=== PATIENT | female | born 1935 | race Caucasian/White ===

== ENCOUNTER 2017-04-13 12:18 | Emergency (ER) | payer OTHER ==
[2017-04-13 12:24] VITALS: BP 101/58; PULSE 82; TEMP 98.2; BMI 20.7
--- NOTE | 2017-04-13 12:24 | PDOC ---
History of Present Illness - General Chief Complaint: Respiratory Stated Complaint: SORE THROAT, COUGH Time Seen by Provider: 04/13/17 12:23 Past History - Past Medical History Allergies/Adverse Reactions: Allergies Allergy/AdvReac Type Severity Reaction Status Date / Time No Known Drug Allergies Allergy Verified 04/13/17 12:19 Home Medications: Ambulatory Orders Sulfamethoxazole/Trimethoprim [Bactrim Ds -] 1 tab PO BID #14 tablet 04/13/17 - Surgical History Orthopedic Surgery: Yes (ELEANOR KNEE REPLACEMENTS) - Suicide/Smoking/Psychosocial Hx Smoking History: Never smoked Hx Alcohol Use: No Drug/Substance Use Hx: No Hx Substance Use Treatment: No ED Treatment Course - LABORATORY CBC & Chemistry Diagram: 04/13/17 12:45 04/13/17 12:45 Medical Decision Making - Medical Decision Making 04/13/17 13:21 Chest x-ray: Clear Urinalysis reveals greater than 100 white cells, red cells, nitrite suggestive of UTI Labs reveal mild elevation of LFTs, of which the patient is aware and being followed by Dr. Piña of GI. No definite diagnosis at present. Otherwise no significant abnormalities. Troponin negative EKG normal sinus rhythm, 73/m, possible LVH. Possible old septal infarct, no acute ST-T wave changes. No old EKG for comparison. Unlikely that this is an acute coronary event. 04/13/17 13:26 Reviewed the results of stress test 05/13. Normal stress test, ejection fraction 80%. *DC/Admit/Observation/Transfer Diagnosis at time of Disposition: Urinary tract infection Qualifiers: Urinary tract infection type: acute cystitis Hematuria presence: with hematuria Qualified Code(s): N30.01 - Acute cystitis with hematuria; N30.01 - Acute cystitis with hematuria - Discharge Dispostion Disposition: HOME Condition at time of disposition: Stable Admit: No - Prescriptions Prescriptions: Sulfamethoxazole/Trimethoprim [Bactrim Ds -] 1 tab PO BID #14 tablet - Patient Instructions Printed Discharge Instructions: DI for Urinary Tract Infection (UTI) Additional Instructions: Take antibiotics as directed. Drink lots of fluids. See primary physician to recheck urine for cure after finishing antibiotics. Return to ER if there is high fever or abdominal/back pain.
[2017-04-13] MEDS ORDERED: SODIUM CHLORIDE 500 ML IV STA (12:32)
[2017-04-13 12:52] LABS: BASOPHIL 0.4 % (0-2.0); EOSINOPHIL 0.3 % (0-4.5); MCH 33.8 pg (25.7-33.7); MCHC 33.3 g/dl (32.0-36.0); MEAN CELL VOLUME 101.6 fl (80-96); MEAN PLT VOLUME 8.4 fl (7.5-11.1); NEUTROPHILS 69.2 % (42.8-82.8); PLATELET COUNT 160 K/MM3 (134-434); WHITE BLOOD COUNT 9.7 K/mm3 (4.0-10.8)
[2017-04-13 13:07] LABS: ALBUMIN 3.4 g/dl (3.5-5.0); ALK PHOS 140 U/L (32-92); ANION GAP 7 (8-16); BILIRUBIN,TOTAL 1.3 mg/dl (0.2-1.0); CALCIUM 8.6 mg/dl (8.4-10.2); CO2 25 mmol/L (22-28); CPK 113 IU/L (26-192); CREATININE 0.8 mg/dl (0.6-1.3); GLUCOSE,RANDOM 105 mg/dl (74-106); SGOT/AST 44 U/L (10-42); SGPT/ALT 24 U/L (10-40); TOT PROT 8.1 g/dl (6.4-8.3)
[2017-04-13 13:12] LABS: PH,URINE 5.5 (4.5-8); URINE BILIRUBIN Negative (NEGATIVE); URINE GLUCOSE (UA) Negative (NEGATIVE); URINE KETONE Negative (NEGATIVE); URINE NITRITE Negative (NEGATIVE)
[2017-04-13 13:13] LABS: URINE APPEARANCE SL CLOUDY; URINE BLOOD 2+ (NEGATIVE); URINE COLOR AMBER; URINE LEUK ESTERASE 2+ (NEGATIVE); URINE PROTEIN 1+ (NEGATIVE)
[2017-04-13 13:18] LABS: URINE RBC 20-30 /hpf (0-3)
[2017-04-13 13:19] LABS: URINE BACTERIA MANY /hpf (NEGATIVE); URINE WBC >100 (3-5)
[2017-04-13 13:21] LABS: TROPONIN I (DFP) < 0.03 ng/ml (0.03-0.50)
--- NOTE | 2017-04-14 16:43 | EKG ---
Test Reason : Blood Pressure : / mmHG Vent. Rate : 073 BPM Atrial Rate : 073 BPM P-R Int : 196 ms QRS Dur : 090 ms QT Int : 406 ms P-R-T Axes : 050 -27 015 degrees QTc Int : 447 ms NORMAL SINUS RHYTHM MINIMAL VOLTAGE CRITERIA FOR LVH, MAY BE NORMAL VARIANT ABNORMAL ECG NO PREVIOUS ECGS AVAILABLE Confirmed by MARCELLO HOWE MD ([id number]) on 04/14/2017 4:43:30 PM Referred By: JANKI HOUSE Confirmed By:MARCELLO HOWE MD
--- NOTE | 2017-04-16 18:19 | PDOC ---
Patient Follow-up (Call Back) - Post ED Follow - Up Condition at time of discharge: Stable Disposition at time of original discharge: HOME Reason for Call Back: Abnwl. Microbiology (Patient with positive ESBL in the urine, spoke to [facility] who will follow up with patient. Patient was seen at [facility], Spoke to Isabel Vela that will notify MD to follow)
--- NOTE | 2017-04-16 18:28 | PDOC ---
Patient Follow-up (Call Back) - Post ED Follow - Up Condition at time of discharge: Stable Disposition at time of original discharge: HOME - Disposition Additional Instructions/Notes: Received a call from the lab that patient's bacteria is resistant to Bactrim. Patient was started on Bactrim on the . Call patient's home spoke with her care provider. Explained that patient would need a different antibiotic. Prescription for Macrobid was called to patient's pharmacy patient is care provider will go get the prescription and start the patient on the prescription tomorrow morning..
== END 2017-04-13 13:50 | disposition home or self-care (01) ==
LOC: FER 12:18
PROC: 3E0337Z Introduction of Electrolytic and Water Balance Substance into Peripheral Vein, Percutaneous Approach (ICD-10-PCS; principal; 2017-04-13)
DX: N30.01 Acute cystitis with hematuria (principal); Z96.653 Presence of artificial knee joint, bilateral
CPT/HCPCS: 36415; 71020-TC; 80053; 81003; 81015; 82550; 84484; 85025; 87086; 87186; 93005; 99284-25

== ENCOUNTER 2023-10-09 12:15 | Observation (INO) | payer OTHER ==
[2023-10-09 14:14] LABS: BASO % 0.4 % (0-2.0); EOS % 2.7 % (0-4.5); HEMOGLOBIN 9.4 GM/dL (10.7-15.3); LYMPH % 40.5 % (8-40); MCH 36.2 pg (25.7-33.7); MCHC 33.4 g/dl (32.0-36.0); MEAN CELL VOLUME 108.3 fl (80-96); MEAN PLT VOLUME 8.7 fl (7.5-11.1); MONO % 14.2 % (3.8-10.2); NEUT % 42.2 % (42.8-82.8); PLATELET COUNT 70 10^3/uL (134-434); RBC 2.59 M/mm3 (3.60-5.2); RDW 15.8 % (11.6-15.6); WHITE BLOOD COUNT 4.5 K/mm3 (4.0-10.0)
[2023-10-09 14:20] LABS: INR 1.31 (0.83-1.09); PROTHROMBIN TIME (PATIENT) 15.2 SEC (9.7-13.0)
[2023-10-09 14:33] LABS: POTASSIUM 4.2 mmol/L (3.5-5.1)
[2023-10-09 14:35] LABS: ALBUMIN 2.2 g/dl (3.4-5.0); CALCIUM 8.7 mg/dL (8.5-10.1)
[2023-10-09 14:36] LABS: BLOOD UREA NITROGEN 16.7 mg/dL (7-18)
[2023-10-09 14:38] LABS: CREATININE 0.8 mg/dL (0.55-1.3)
[2023-10-09 14:40] LABS: BILIRUBIN,TOTAL 1.2 mg/dL (0.2-1); TOT PROT 7.3 g/dl (6.4-8.2)
[2023-10-09 14:42] LABS: ANISOCYTOSIS 2+; MACROCYTOSIS 2+
[2023-10-09] MEDS: DEXTROSE 5%-NORMAL SALINE 1,000 ML IV SCH (16:44)
[2023-10-10 03:10] VITALS: BMI 26.0
[2023-10-10 08:43] LABS: BASO % 0.6 % (0-2.0); EOS % 3.6 % (0-4.5); HEMATOCRIT 26.5 % (32.4-45.2); HEMOGLOBIN 9.1 GM/dL (10.7-15.3); LYMPH % 42.3 % (8-40); MCH 36.8 pg (25.7-33.7); MCHC 34.3 g/dl (32.0-36.0); MEAN CELL VOLUME 107.3 fl (80-96); MEAN PLT VOLUME 9.1 fl (7.5-11.1); MONO % 11.3 % (3.8-10.2); NEUT % 42.2 % (42.8-82.8); PLATELET COUNT 64 10^3/uL (134-434); RBC 2.47 M/mm3 (3.60-5.2); RDW 16.3 % (11.6-15.6); WHITE BLOOD COUNT 3.3 K/mm3 (4.0-10.0)
[2023-10-10 08:52] LABS: POTASSIUM 3.8 mmol/L (3.5-5.1)
[2023-10-10 09:00] LABS: BLOOD UREA NITROGEN 13.7 mg/dL (7-18); CALCIUM 8.2 mg/dL (8.5-10.1)
[2023-10-10 09:02] LABS: BILIRUBIN,TOTAL 1.7 mg/dL (0.2-1); TOT PROT 6.9 g/dl (6.4-8.2)
[2023-10-10 09:04] LABS: CREATININE 0.9 mg/dL (0.55-1.3)
[2023-10-10] MEDS: POLYETHYLENE GLYCOL (HEALTHYLAX) 3350 17 GM PACKET PO SCH (10:43)
[2023-10-10] MEDS: CEFTRIAXONE 1 GM in DEXTROSE 5%-WATER - 50 ML IVPB SCH (10:43)
[2023-10-11] MEDS: LEVOTHYROXINE NA 25 MCG TABLET (FP) PO SCH (06:16)
[2023-10-11] MEDS: PANTOPRAZOLE 40 MG TABLET PO SCH (10:12)
[2023-10-11] MEDS: SPIRONOLACTONE 25 MG TABLET PO SCH (10:12)
[2023-10-11 10:28] LABS: HEMATOCRIT 26.3 % (32.4-45.2); HEMOGLOBIN 8.9 GM/dL (10.7-15.3); MCH 36.6 pg (25.7-33.7); MCHC 33.9 g/dl (32.0-36.0); MEAN CELL VOLUME 107.7 fl (80-96); MEAN PLT VOLUME 8.8 fl (7.5-11.1); PLATELET COUNT 65 10^3/uL (134-434); RBC 2.44 M/mm3 (3.60-5.2); RDW 16.4 % (11.6-15.6); WHITE BLOOD COUNT 3.1 K/mm3 (4.0-10.0)
[2023-10-11 10:46] LABS: POTASSIUM 3.8 mmol/L (3.5-5.1)
[2023-10-11 10:48] LABS: ALBUMIN 1.9 g/dl (3.4-5.0); CALCIUM 8.1 mg/dL (8.5-10.1)
[2023-10-11 10:49] LABS: BLOOD UREA NITROGEN 8.9 mg/dL (7-18)
[2023-10-11 10:51] LABS: CREATININE 0.9 mg/dL (0.55-1.3)
[2023-10-11 10:53] LABS: BILIRUBIN,TOTAL 1.5 mg/dL (0.2-1); TOT PROT 6.7 g/dl (6.4-8.2)
[2023-10-11 20:15] VITALS: RESP 18
[2023-10-12 08:18] LABS: HEMATOCRIT 26.7 % (32.4-45.2); HEMOGLOBIN 9.1 GM/dL (10.7-15.3); MCH 36.6 pg (25.7-33.7); MCHC 33.9 g/dl (32.0-36.0); MEAN PLT VOLUME 9.1 fl (7.5-11.1); PLATELET COUNT 67 10^3/uL (134-434); RBC 2.48 M/mm3 (3.60-5.2); RDW 15.9 % (11.6-15.6); WHITE BLOOD COUNT 3.5 K/mm3 (4.0-10.0)
[2023-10-12 08:59] LABS: CALCIUM 7.9 mg/dL (8.5-10.1)
[2023-10-12 09:00] LABS: ALBUMIN 1.9 g/dl (3.4-5.0); BLOOD UREA NITROGEN 9.6 mg/dL (7-18)
[2023-10-12 09:03] LABS: CREATININE 0.8 mg/dL (0.55-1.3)
[2023-10-12 09:05] LABS: BILIRUBIN,TOTAL 1.4 mg/dL (0.2-1); TOT PROT 6.5 g/dl (6.4-8.2)
[2023-10-12 09:21] VITALS: BP 122/66; PULSE 86; TEMP 98
== END 2023-10-12 13:16 | disposition home or self-care (01) ==
LOC: JER 12:15 → INTOOBSV 15:32 → UNDOADMOB 15:32 → JERBED 15:32 → J6S 10-10 00:54
PROVIDERS: ADMIT Internal Medicine; ATTEND Internal Medicine
PROC: 3E03329 Introduction of Other Anti-infective into Peripheral Vein, Percutaneous Approach (ICD-10-PCS; principal; 2023-10-09)
PROC: 3E0337Z Introduction of Electrolytic and Water Balance Substance into Peripheral Vein, Percutaneous Approach (ICD-10-PCS; 2023-10-09)
DX: K92.2 Gastrointestinal hemorrhage, unspecified (principal); I10 Essential (primary) hypertension; G30.9 Alzheimer's disease, unspecified; K59.09 Other constipation; D69.6 Thrombocytopenia, unspecified
CPT/HCPCS: 36415; 74177-TC; 80053; 85025; 85027; 85610; 86850; 86900; 86901; 93005; 93010; 96361; 96365; 96368; 97116-GP; 97162-GP; 99285-25; G0378; Q9967